=== PATIENT | female | born 1930 | race Caucasian/White ===

== ENCOUNTER → 2017-06-16 | Outpatient (CLI) | payer MEDICARE, BC ==
[~2017-06-16] MED LIST: ADVAIR 250/5028 PUFF IN; ALPRAZOLAM0.5 M3 PO; BENTYL20 MG PO; HYDROCODONE-APA1 TA2 PO; NEXIUM40 MG PO; ONDANSETRON HYDR4 MG PO; PSYLLIUM PO; [UNRECOGNIZED DRUG - OTHER] PO
--- NOTE | 2017-06-18 14:55 | RADIOLOGY REPORT PS360 ---
DIG MAMM-SCREEN YONIS W/CAD CAD Screening COMPARISON: Digital mammograms 05/20/2015 and 06/09/2016 INDICATION: There is no personal or family history of breast cancer TECHNIQUE: Standard CC and MLO images were obtained. R2 CAD reviewed. FINDINGS: There is a diffusely dense and heterogenic parenchymal pattern somewhat lessening the sensitivity of mammography. There is minimal scattered arterial calcination in each breast. There is no suspicious lesion in either breast and there are no suspicious microcalcifications. IMPRESSION: Diffusely dense parenchymal pattern with no suspicious lesion seen recommend yearly follow-up BI-RADS CATEGORY: 2_Benign RECOMMENDED FOLLOWUP: 12M 12 MONTH FOLLOW-UP (A letter has been sent to the patient regarding results of the study.)
== END ==
LOC: RAD 09:38
DX: Z12.31 Encounter for screening mammogram for malignant neoplasm of breast (principal)
CPT/HCPCS: G0202